=== PATIENT | female | born 1935 | race Caucasian/White ===

== ENCOUNTER 2019-05-14 14:18 | Inpatient (IN) ==
--- NOTE | 2019-05-14 14:25 | Emergency Department Note ---
Impression & Plan Aspiration into airway, Dementia, Hypoxia, Leukocytosis ED Provider Note NAME: OSWALD HUDSON AGE: 84 SEX: F ARRIVES VIA: Ambulance INFORMANT: EMS, son ED PROVIDER(S): Javy Martínez MD CHIEF COMPLAINT: Respiratory distress PLAN: Disposition: Admit MEDICAL DECISION MAKING: The patient is a pleasant 84-year-old woman with a past medical history of dementia who presents emergency department from her [facility] facility for respiratory distress in the setting of choking on a peanut butter sandwich. On arrival the patient is in mild respiratory distress with hypoxia with oxygen saturation in the lower to mid 80s on room air. Patient was placed on Ventimask with improvement in her O2 saturation to 93% gradual improvement in her work of breathing. Upon the patient's arrival I did discuss the case with the patient's son and he did confirm that the patient's wishes are to be DNR/DNI but is not sure if the form had followed her previously in [place]. He understands that if the patient's respiratory status were to decline, given the inability to intubate per the patient's wishes and goals of care that focus would then be on more comfort measures. On exam the patient has diminished breath sounds of the right lung avalos but is otherwise clear. EKG without overt acute ischemia. Chest x-ray negative for acute process. BBC 12.6, nonspecific. H/H and platelets within normal limits. Chemistry without acidosis. BUN 19 she is decreased from last month. Take 1.5. Electrolytes and LFTs unremarkable. Troponin 0.042, within normal limits. Patient's acute onset respiratory distress in the setting of report of aspiration reasonable to proceed with admission for further management. Given no chest x-ray findings at this time to suggest aspiration pneumonia will defer antibiotic treatment to admitting team. Case was discussed with Dr. Chowdhury, [facility] hospitalist, who will evaluate the patient for admission. Triage Nursing notes reviewed and agree them. Additional history obtained from son over the phone Prior medical records reviewed Vital Signs: reviewed and remarkable for hypoxia, tachypnea and tachycardia. Differential diagnosis: Reactive airway disease, pneumonia, pneumothorax, COPD, CHF, infections, cardiac ischemia, pulmonary embolism, musculoskeletal, gastrointestinal, as well as other pathologies. ER treatment provided: See below. Diagnostics interpreted by me: ECG: Sinus tachycardia, 109 bpm, normal axis, no overt ST elevations or depressions. QTC 460, QRS 76. Baseline artifact. Cardiac Monitoring: Sinus tachycardia, 109 bpm, no ectopy. Laboratory studies: See below Imaging studies: XR chest 1V portable CLINICAL HISTORY: Chest Pain dyspnea COMPARISON STUDY: No previous studies for comparison. FINDINGS: Mild atelectasis left base. Lungs otherwise appear clear. Diaphragms are smooth. IMPRESSION: Mild atelectasis left base. Otherwise negative study. Consultation(s): Dr. Chowdhury, [facility] hospitalist. HPI: The patient is a pleasant 84-year-old woman with a past medical history of dementia who presents emergency department from her [facility] facility for respiratory distress in the setting of choking on a peanut butter sandwich. On arrival the patient is in mild respiratory distress with hypoxia with oxygen saturation in the lower to mid 80s on room air. Upon the patient's arrival I did discuss the case with the patient's son and he did confirm that the patient's wishes are to be DNR/DNI but is not sure if the form had followed her previously in [place]. He understands that if the patient's respiratory status were to decline, given the inability to intubate per the patient's wishes and goals of care that focus would then be on more comfort measures. ROS: See above HPI for pertinent positives & negatives. A total of 10 systems reviewed and were otherwise negative but limited 2/2 dementia. PAST MEDICAL HISTORY:See Below PAST SURGICAL HISTORY:See Below FAMILY HISTORY:See Below SOCIAL HISTORY:See Below HOME MEDICATIONS:See Below ALLERGIES:See Below VITALS:See Below PHYSICAL EXAMINATION: GENERAL: Awake, alert, uncomfortable-appearing, moderate respiratory distress. HENT: Normocephalic, atraumatic. Oropharynx with dry mucous membranes and otherwise unremarkable. EYES: Normal conjunctiva. Sclera non-icteric. NECK: Supple. No nuchal rigidity. FROM. No JVD. RESPIRATORY: Diminished breath sounds of the right lung avalos and otherwise clear to auscultation. CARDIAC: Tachycardic rate, normal rhythm. Extremities warm and well perfused. Pulses equal. ABDOMEN: Soft, non-distended. No tenderness to palpation. No rebound or guarding. No masses. RECTAL: Deferred. MUSCULOSKELETAL: Chest examination reveals no tenderness. The back is symmetri maral on inspection without obvious abnormality. There is no CVA tenderness to palpation. No joint edema. LOWER EXTREMITIES: Calves are equal size bilaterally and non-tender. No edema. No discoloration. NEURO: Normal sensorium. No sensory or motor deficits noted. SKIN: No rash or jaundice noted. ED COURSE: Javy Martínez MD Past Med/Surg History Medical History Dementia (Acute) Family History Other Family history non-contributory Social History Preferred Language: Austrian Communication Ability: Effective Beliefs That Will Affect Care: None Current Living Situation: Personal Care Facility Current Living Situation Comment: [facility] Feels Safe at Home: Yes Smoking Status: Never smoker Hx Alcohol Use: No Hx Substance Use: No Allergies Allergies Allergy/AdvReac Type Severity Reaction Status Date / Time No Known Allergies Allergy Unverified 05/14/19 14:53 Home Meds Home Medications Medication Instructions Recorded Confirmed acetaminophen 650 mg PO Q4 PRN MDD 3gm/24hr 12/10/17 05/14/19 albuterol sulfate [Ventolin HFA] 2 puff INHALATION Q4 PRN 12/10/17 05/14/19 calcium carbonate [Calcium 600] 600 mg PO BID 12/10/17 05/14/19 chlorpheniramine maleate 4 mg PO Q4 PRN 12/10/17 05/14/19 [Aller-Chlor] cholecalciferol (vitamin D3) 2,000 unit PO DAILY@0800 12/10/17 05/14/19 [Vitamin D3] levothyroxine 25 mcg PO DAILY@0812/10/17 05/14/19 paozewlxxvvl-fbyorcro-mteseu 1 tab PO DAILY@0800 12/10/17 05/14/19 [Cerovite Senior] nystatin 1 applic TOPICAL TID PRN 12/10/17 05/14/19 oxybutynin chloride 10 mg PO DAILY@0812/10/17 05/14/19 paroxetine HCl 10 mg PO DAILY@0800 12/10/17 05/14/19 quetiapine 25 mg PO DAILY@199912/10/17 05/14/19 spironolactone 25 mg PO DAILY@0812/10/17 05/14/19 Results & Data (ED) Vital Signs Vital Signs - 24 hr 05/14/19 14:24 05/14/19 14:29 05/14/19 14:30 Temperature 36.9 C Temperature Source Oral Pulse Rate 110 H 108 H 108 H Pulse Rate from SpO2 Sensor 111 H 108 H 109 H Pulse Rhythm Regular Pulse Strength Normal Respiratory Rate 27 H 24 19 Respiratory Effort / Characteristics Spontaneous Short of Breath Respiratory Depth Normal Respiratory Pattern Regular Blood Pressure 148/74 H 148/74 H Blood Pressure Mean 112 98 Blood Pressure Position Lying Pulse Oximetry 88 L 91 92 Oxygen Delivery Method Room Air Oxymask Oxymask Oxygen Flow Rate 10 10 Sepsis Recent Fever Within 48 Hours No Sepsis New/Unexplained Change in Mental Status No Sepsis Action Taken by Nursing No Action Required 05/14/19 15:00 05/14/19 15:30 05/14/19 16:00 Temperature Temperature Source Pulse Rate 110 H 105 H 105 H Pulse Rate from SpO2 Sensor 110 H 108 H 106 H Pulse Rhythm Pulse Strength Respiratory Rate 27 H 16 20 Respiratory Effort / Characteristics Respiratory Depth Respiratory Pattern Blood Pressure Blood Pressure Mean Blood Pressure Position Pulse Oximetry 93 95 97 Oxygen Delivery Method Oxymask Oxymask Oxymask Oxygen Flow Rate 10 10 10 Sepsis Recent Fever Within 48 Hours Sepsis New/Unexplained Change in Mental Status Sepsis Action Taken by Nursing 05/14/19 16:20 Temperature Temperature Source Pulse Rate 104 H Pulse Rate from SpO2 Sensor 103 H Pulse Rhythm Pulse Strength Respiratory Rate 18 Respiratory Effort / Characteristics Respiratory Depth Respiratory Pattern Blood Pressure 135/79 Blood Pressure Mean 92 Blood Pressure Position Pulse Oximetry 98 Oxygen Delivery Method Oxymask Oxygen Flow Rate 10 Sepsis Recent Fever Within 48 Hours Sepsis New/Unexplained Change in Mental Status Sepsis Action Taken by Nursing Laboratory Data Attestation: I reviewed the patient's lab results. Result diagrams: 05/14/19 14:55 05/14/19 14:55 Lab Results 05/14/19 05/14/19 05/14/19 Range/Units 14:55 14:55 14:55 WBC 12.69 H (4.8-10.8) K/uL RBC 4.56 (4.2-5.4) M/uL Hgb 14.2 (12.0-16.0) g/dL Hct 42.5 (37-47) % MCV 93.2 (80-100) fL MCH 31.1 (25-34) pg MCHC 33.4 (32-36) g/dL RDW Std Deviation 43.2 (36.4-46.3) fL RDW Coeff of Adelaida 12.7 (11.5-14.5) % Plt Count 262 (130-400) K/uL MPV 9.8 (7.4-10.4) fL Immature Gran % (Auto) 0.2 % Neut % (Auto) 83.6 % Lymph % (Auto) 7.9 % [place] % (Auto) 7.5 % Eos % (Auto) 0.6 % Baso % (Auto) 0.2 % Immature Gran # (Auto) 0.03 H (0.00-0.02) K/uL Neut # (Auto) 10.61 H (1.4-6.5) K/uL Lymph # (Auto) 1.00 L (1.2-3.4) K/uL [place] # (Auto) 0.95 H (0.11-0.59) K/uL Eos # (Auto) 0.07 (0-0.5) K/uL Baso # (Auto) 0.03 (0-0.2) K/uL Absolute Nucleated RBC 0.06 H (0-0) K/uL Nucleated RBC % (auto) 0.4 % PT 11.4 (9.0-12.0) Seconds INR 1.1 (0.9-1.1) APTT 21.1 (21.0-31.0) Seconds PTT Ratio 0.8 Sodium 138 (136-145) mmol/L Potassium 4.4 (3.5-5.1) mmol/L Chloride 104 (98-107) mmol/L Carbon Dioxide 31 (21-32) mmol/L Anion Gap 3.0 (3-11) BUN 19 H (7-18) mg/dl Creatinine 0.92 (0.6-1.2) mg/dl Est Cr Clr Drug Dosing Not Reportable Est GFR ( Amer) 65.3 Est GFR (Non-Af Amer) 56.4 BUN/Creatinine Ratio 20.2 H (10-20) Glucose 137 H (70-99) mg/dl Lactate (0.4-2.0) mmol/L Calcium 9.9 (8.5-10.1) mg/dl Total Bilirubin 0.4 (0.2-1) mg/dl AST 22 (15-37) U/L ALT 22 (12-78) U/L Alkaline Phosphatase 114 (45-117) U/L Troponin I 0.042 (0-0.045) ng/ml Total Protein 7.5 (6.4-8.2) gm/dl Albumin 3.3 L (3.4-5.0) gm/dl Globulin 4.2 H (2.5-4.0) gm/dl Albumin/Globulin Ratio 0.8 L (0.9-2) Specimen Hemolysis 05/14/19 Range/Units 14:55 WBC (4.8-10.8) K/uL RBC (4.2-5.4) M/uL Hgb (12.0-16.0) g/dL Hct (37-47) % MCV (80-100) fL MCH (25-34) pg MCHC (32-36) g/dL RDW Std Deviation (36.4-46.3) fL RDW Coeff of Adelaida (11.5-14.5) % Plt Count (130-400) K/uL MPV (7.4-10.4) fL Immature Gran % (Auto) % Neut % (Auto) % Lymph % (Auto) % [place] % (Auto) % Eos % (Auto) % Baso % (Auto) % Immature Gran # (Auto) (0.00-0.02) K/uL Neut # (Auto) (1.4-6.5) K/uL Lymph # (Auto) (1.2-3.4) K/uL [place] # (Auto) (0.11-0.59) K/uL Eos # (Auto) (0-0.5) K/uL Baso # (Auto) (0-0.2) K/uL Absolute Nucleated RBC (0-0) K/uL Nucleated RBC % (auto) % PT (9.0-12.0) Seconds INR (0.9-1.1) APTT (21.0-31.0) Seconds PTT Ratio Sodium (136-145) mmol/L Potassium (3.5-5.1) mmol/L Chloride (98-107) mmol/L Carbon Dioxide (21-32) mmol/L Anion Gap (3-11) BUN (7-18) mg/dl Creatinine (0.6-1.2) mg/dl Est Cr Clr Drug Dosing Est GFR ( Amer) Est GFR (Non-Af Amer) BUN/Creatinine Ratio (10-20) Glucose (70-99) mg/dl Lactate 1.5 (0.4-2.0) mmol/L Calcium (8.5-10.1) mg/dl Total Bilirubin (0.2-1) mg/dl AST (15-37) U/L ALT (12-78) U/L Alkaline Phosphatase (45-117) U/L Troponin I (0-0.045) ng/ml Total Protein (6.4-8.2) gm/dl Albumin (3.4-5.0) gm/dl Globulin (2.5-4.0) gm/dl Albumin/Globulin Ratio (0.9-2) Specimen Hemolysis Administered Medications Heparin Sodium (Porcine) (Heparin Sodium (Porcine)) 5,000 units SQ Q8 MAY Stop: 06/13/19 21:59 Last Admin: 05/14/19 21:47 Dose: 5,000 units Documented by: [id number] Cosigned by: [id number] Sodium Chloride (Nss) 500 mls @ 125 mls/hr IV .Q4H MAY Stop: 06/13/19 14:44 Last Admin: 05/14/19 19:11 Dose: 125 mls/hr Documented by: [id number] Infusion: 05/14/19 18:49 Dose: 0 mls/hr Documented by: [id number] Admin: 05/14/19 15:06 Dose: 125 mls/hr Documented by: [id number] Discontinued Medications Piperacillin Sod/Tazobactam (Sod 3.375 gm/ Dextrose) 115 mls @ 230 mls/hr IV ONE ONE Stop: 05/14/19 19:29 Last Infusion: 05/14/19 19:53 Dose: 0 mls/hr Documented by: [id number] Admin: 05/14/19 19:23 Dose: 230 mls/hr Documented by: [id number] Lorazepam (Ativan) 1 mg in 2 mls @ 2 mls/min IV NOW STA Stop: 05/14/19 19:53 Last Admin: 05/14/19 20:01 Dose: 2 mls/min Documented by: [id number] Blood Pressure Blood Pressure Findings: Elevated blood pressure Blood Pressure Disposition: further management by hospitalist Discharge Plan Visit Data *Final* Discharge Date/Time: 05/14/19 17:25 Chief Complaint: Respiratory Problems ED Provider: Javy Martínez Discharge Problem: Aspiration into airway, Dementia, Hypoxia, Leukocytosis Patient Disposition: Admitted As Inpatient Discharge Instructions Interventions: ED Discharge Assessment Last Done: 05/14/19 17:25 Discharge Problem: Aspiration into airway Qualifiers: Encounter type: initial encounter Qualified Code(s): T17.908A - Unspecified foreign body in respiratory tract, part unspecified causing other injury, i nitial encounter Dementia Qualifiers: Dementia type: unspecified type Dementia behavioral disturbance: without behavioral disturbance Qualified Code(s): F03.90 - Unspecified dementia without behavioral disturbance Leukocytosis Qualifiers: Leukocytosis type: unspecified Qualified Code(s): D72.829 - Elevated white blood cell count, unspecified
[2019-05-14 15:03] LABS: Basophils # (auto) 0.03 K/uL (0-0.2); Basophils % (auto) 0.2 %; Eosinophils # (auto) 0.07 K/uL (0-0.5); Eosinophils % (auto) 0.6 %; Hematocrit (blood only) 42.5 % (37-47); Hemoglobin 14.2 g/dL (12.0-16.0); Immature Granulocytes # (auto) 0.03 K/uL (0.00-0.02); Immature Granulocytes % (auto) 0.2 %; Lymphocytes % (auto) 7.9 %; Mean Corpuscular Hemoglobin 31.1 pg (25-34); Mean Corpuscular Hgb Conc 33.4 g/dL (32-36); Mean Corpuscular Volume 93.2 fL (80-100); Mean Platelet Volume 9.8 fL (7.4-10.4); Monocytes # (auto) 0.95 K/uL (0.11-0.59); Monocytes % (auto) 7.5 %; Neutrophils # (auto) 10.61 K/uL (1.4-6.5); Neutrophils % (auto) 83.6 %; Nucleated RBC # (auto) 0.06 K/uL (0-0); Nucleated RBC % (auto) 0.4 %; Platelet Count 262 K/uL (130-400); RDW Coefficient of Variation 12.7 % (11.5-14.5); RDW Standard Deviation 43.2 fL (36.4-46.3); Red Blood Count 4.56 M/uL (4.2-5.4); White Blood Count 12.69 K/uL (4.8-10.8)
[2019-05-14] MEDS: SODIUM CHLORIDE 0.9% 500 ML IV SCH ×3 (15:06→23:10)
[2019-05-14 15:14] LABS: INR 1.1 (0.9-1.1); Partial Thromboplastin Ratio 0.8; Partial Thromboplastin Time 21.1 Seconds (21.0-31.0); Prothrombin Time 11.4 Seconds (9.0-12.0)
--- NOTE | 2019-05-14 15:17 | XRay Report ---
XR chest 1V portable CLINICAL HISTORY: Chest Pain dyspnea COMPARISON STUDY: No previous studies for comparison. FINDINGS: Mild atelectasis left base. Lungs otherwise appear clear. Diaphragms are smooth. IMPRESSION: Mild atelectasis left base. Otherwise negative study. ACT 112: Negative or not required by law. The above report was generated using voice recognition software. It may contain grammatical, syntax or spelling errors. Electronically signed by: Norris Chao M.D. 05/14/2019 3:16 PM
[2019-05-14 15:38] LABS: Alanine Aminotransferase 22 U/L (12-78); Albumin Globulin Ratio 0.8 (0.9-2); Albumin Level 3.3 gm/dl (3.4-5.0); Alkaline Phosphatase 114 U/L (45-117); Aspartate Aminotransferase 22 U/L (15-37); BUN Creatinine Ratio 20.2 (10-20); Bilirubin,Total 0.4 mg/dl (0.2-1); Blood Urea Nitrogen 19 mg/dl (7-18); Calcium 9.9 mg/dl (8.5-10.1); Carbon Dioxide 31 mmol/L (21-32); Chloride 104 mmol/L (98-107); Est GFR (African American) 65.3; Est GFR (Non-African American) 56.4; Globulin 4.2 gm/dl (2.5-4.0); Glucose 137 mg/dl (70-99); Potassium 4.4 mmol/L (3.5-5.1); Sodium 138 mmol/L (136-145); Total Protein 7.5 gm/dl (6.4-8.2); Troponin I 0.042 ng/ml (0-0.045)
--- NOTE | 2019-05-14 15:39 | Electrocardiogram Report ---
Test Reason : Blood Pressure : / mmHG Vent. Rate : 109 BPM Atrial Rate : 109 BPM P-R Int : 150 ms QRS Dur : 076 ms QT Int : 342 ms P-R-T Axes : 096 -01 027 degrees QTc Int : 460 ms Sinus tachycardia Otherwise normal ECG No previous ECGs available Confirmed by Jez Vela ([id number]) on 05/14/2019 3:38:59 PM Referred By: REFERRED SELF Confirmed By:Jez Vela
--- NOTE | 2019-05-14 16:55 | History & Physical Report ---
Date of Service May 14, 2019 Assessment & Plan (1) Aspiration into airway: choked on sandwich earlier today no distress at this time lungs clear, some diminished sounds in the bases CXR clear, no infiltrate initially on 10L via mask, down to 3L via mask while I was in the room will cover with Zosyn for now make her strict NPO, she does not need to take any of her typical home medications at this time will evaluate her swallowing tomorrow with speech therapy advance diet per their recommendations make her observation as I anticipate she will be here less than two midnights (2) Hypoxia: (3) Dementia: History of Present Illness Chief Complaint: choked on sandwich Primary Care Provider: [facility] 84 yo female with advanced dementia from personal senior living, she was sent to the ED after a severe choking spell on a sandwich earlier today. There were concerns that she aspirated and she was having some dyspnea. She cannot recall any recent history, all the history is from the ED provider who got it from the EMS who brought her in. In the ED she was 85% on room air initially, placed on oxymask and saturations joseph to the mid 90's. CXR without any signs of aspiration on the right. No distress on exam. Labs showed a mild leukocytosis but were otherwise stable. Since she was requiring oxygen, request was made to observe the patient overnight. Allergies Allergy/AdvReac Type Severity Reaction Status Date / Time No Known Allergies Allergy Unverified 05/14/19 14:53 Home Medications Home Medications Medication Instructions Recorded Confirmed Type acetaminophen 650 mg PO Q4 PRN MDD 3gm/24hr 12/10/17 05/14/19 History albuterol sulfate [Ventolin HFA] 2 puff INHALATION Q4 PRN 12/10/17 05/14/19 History calcium carbonate [Calcium 600] 600 mg PO BID 12/10/17 05/14/19 History chlorpheniramine maleate 4 mg PO Q4 PRN 12/10/17 05/14/19 History [Aller-Chlor] cholecalciferol (vitamin D3) 2,000 unit PO DAILY@0800 12/10/17 05/14/19 History [Vitamin D3] levothyroxine 25 mcg PO DAILY@0800 12/10/17 05/14/19 History vsduzaoregos-dakradgb-spylyt 1 tab PO DAILY@0800 12/10/17 05/14/19 History [Cerovite Senior] nystatin 1 applic TOPICAL TID PRN 12/10/17 05/14/19 History oxybutynin chloride 10 mg PO DAILY@0812/10/17 05/14/19 History paroxetine HCl 10 mg PO DAILY@0800 12/10/17 05/14/19 History quetiapine 25 mg PO DAILY@199912/10/17 05/14/19 History spironolactone 25 mg PO DAILY@0812/10/17 05/14/19 History Past Med/Surg History Medical History Dementia Family History (Updated 05/14/19 @ 20:23 by Aaron Chowdhury DO) Other Family history non-contributory Social History Preferred Language: Japanese Communication Ability: Effective Beliefs That Will Affect Care: None Current Living Situation: Personal Care Facility Current Living Situation Comment: [facility] Feels Safe at Home: Yes Smoking Status: Never smoker Hx Alcohol Use: No Hx Substance Use: No Review of Systems Review of Systems: All systems reviewed & are unremarkable except as noted in HPI & below Constitutional: no fever, no chills, no sweats, no fatigue and no weakness Respiratory: + cough (mild); no dyspnea and no sputum production Cardiovascular: no chest pain and no edema Gastrointestinal: no abdominal pain, no nausea, no vomiting, no constipation and no diarrhea/loose stools Physical Exam Constitutional: WD/WN, vitals as above Eyes: PERRL, conjunctivae normal, anicteric sclerae ENMT: external ear and nose normal, oropharynx normal Neck: trachea midline, no thyromegaly Respiratory: normal respiratory effort, lungs clear to auscultation Auscultation: + diminished lung sounds (bases) Cardiovascular: Rate/Rhythm: regular rhythm and + tachycardic Heart Sounds: normal S1 and normal S2; no murmur Extremities: normal capillary refill; no edema Gastrointestinal (Abdomen): normal bowel sounds, soft, nontender, no hepatosplenomegaly Musculoskeletal: no cyanosis or clubbing, extremities motor strength 5/5 Skin: no rashes, warm and dry Neurologic: patellar DTR's 2+ bilat, sensation intact and PERRL, EOMI, accommodation nl, no face palsy, no dysarthria Psychiatric: Orientation: alert, oriented to person and cooperative; + not oriented to place and + not oriented to time Lymphatic: no cervical or axillary lymphadenopathy Results & Data Results & Data ([facility]) Vital Signs (Past 12 Hours) Vital Signs Temp Pulse Resp BP Pulse Ox 05/14/19 16:41 98 05/14/19 16:20 104 H 18 135/79 98 05/14/19 16:00 105 H 20 97 05/14/19 15:30 105 H 16 95 05/14/19 15:00 110 H 27 H 93 05/14/19 14:30 36.9 C 108 H 19 148/74 H 92 05/14/19 14:29 108 H 24 91 05/14/19 14:24 110 H 27 H 148/74 H 88 L Laboratory Results Laboratory Results - last 24 hr 05/14/19 05/14/19 05/14/19 14:55 14:55 14:55 WBC 12.69 H RBC 4.56 Hgb 14.2 Hct 42.5 MCV 93.2 MCH 31.1 MCHC 33.4 RDW Std Deviation 43.2 RDW Coeff of Adelaida 12.7 Plt Count 262 MPV 9.8 Immature Gran % (Auto) 0.2 Neut % (Auto) 83.6 Lymph % (Auto) 7.9 [place] % (Auto) 7.5 Eos % (Auto) 0.6 Baso % (Auto) 0.2 Immature Gran # (Auto) 0.03 H Neut # (Auto) 10.61 H Lymph # (Auto) 1.00 L [place] # (Auto) 0.95 H Eos # (Auto) 0.07 Baso # (Auto) 0.03 Absolute Nucleated RBC 0.06 H Nucleated RBC % (auto) 0.4 PT 11.4 INR 1.1 APTT 21.1 PTT Ratio 0.8 Sodium 138 Potassium 4.4 Chloride 104 Carbon Dioxide 31 Anion Gap 3.0 BUN 19 H Creatinine 0.92 Est Cr Clr Drug Dosing Not Reportable Est GFR ( Amer) 65.3 Est GFR (Non-Af Amer) 56.4 BUN/Creatinine Ratio 20.2 H Glucose 137 H Lactate Calcium 9.9 Total Bilirubin 0.4 AST 22 ALT 22 Alkaline Phosphatase 114 Troponin I 0.042 Total Protein 7.5 Albumin 3.3 L Globulin 4.2 H Albumin/Globulin Ratio 0.8 L Specimen Hemolysis 05/14/19 14:55 WBC RBC Hgb Hct MCV MCH MCHC RDW Std Deviation RDW Coeff of Adelaida Plt Count MPV Immature Gran % (Auto) Neut % (Auto) Lymph % (Auto) [place] % (Auto) Eos % (Auto) Baso % (Auto) Immature Gran # (Auto) Neut # (Auto) Lymph # (Auto) [place] # (Auto) Eos # (Auto) Baso # (Auto) Absolute Nucleated RBC Nucleated RBC % (auto) PT INR APTT PTT Ratio Sodium Potassium Chloride Carbon Dioxide Anion Gap BUN Creatinine Est Cr Clr Drug Dosing Est GFR ( Amer) Est GFR (Non-Af Amer) BUN/Creatinine Ratio Glucose Lactate 1.5 Calcium Total Bilirubin AST ALT Alkaline Phosphatase Troponin I Total Protein Albumin Globulin Albumin/Globulin Ratio Specimen Hemolysis Diagnostic Findings XR chest 1V portable CLINICAL HISTORY: Chest Pain dyspnea COMPARISON STUDY: No previous studies for comparison. FINDINGS: Mild atelectasis left base. Lungs otherwise appear clear. Diaphragms are smooth. IMPRESSION: Mild atelectasis left base. Otherwise negative study. Code Status & VTE Plan VTE Prophylaxis Plan VTE Prophylaxis will be ordered: Yes PG Care Time/CCT Total # of Minutes Spent Total Time Spent with Patient: Total time spent is greater than 50% in coordination of care (as documented) at patient's floor/unit and/or counseling patient: Coding Level of Care Code 99254 OBS Care - Level 2 Diagnoses Aspiration into airway T17.908A Hypoxia R09.02 Dementia F03.90
[2019-05-14] MEDS ORDERED: PIPERACILL/TAZOBAC CONSULT ACTIVE PRN (18:48)
[2019-05-14] MEDS ORDERED: ONDANSETRON INJ 2 MG/ML 2 ML VIAL IV PRN (18:48)
[2019-05-14] MEDS ORDERED: PIPERACILLIN/TAZOBACTAM 3.375 GM in DEXTROSE 5% 100 ML IV ONE (19:00)
[2019-05-14] MEDS ORDERED: LORazepam 1 MG/2 ML VIAL IV STA (19:52)
[2019-05-14] MEDS: HEPARIN SOD 5,000 UNIT/0.5 ML VIAL SQ SCH (21:47)
[2019-05-14] MEDS ORDERED: ACETAMINOPHEN 1,000 MG/100 ML VIAL IV STA (23:39)
[2019-05-15] MEDS: PIPERACILLIN/TAZOBACTAM 3.375 GM in DEXTROSE 5% 100 ML IV SCH ×2 (00:05→07:43)
[2019-05-15] MEDS ORDERED: BUDESONIDE 0.5 MG/2 ML VIAL (PULMICORT) NEB PRN (05:37)
[2019-05-15] MEDS ORDERED: VANCOMYCIN CONSULT ACTIVE PRN (05:37)
[2019-05-15 05:49] LABS: iSTAT Allen Test Pass; iSTAT Art Bld Gas pCO2 Correct 68 mmHg (35-46); iSTAT Arterial Blood Gas HCO3 32 meg/L (19-24); iSTAT Arterial Blood Gas pCO2 67 mmHg (35-46); iSTAT Arterial Blood Gas pH 7.28 (7.35-7.45); iSTAT Arterial Blood Gas pO2 72 mmHg (80-95); iSTAT Arterial Blood Gas pO2 C 73; iSTAT Carbon Dioxide 34 mmol/L (24-31); iSTAT Hematocrit 39 % (37-47); iSTAT Hemoglobin 13.3 g/dl (12.0-16.0); iSTAT Potassium 4.4 mmol/L (3.3-5.0); iSTAT Site L Radial; iSTAT Sodium 139 mmol/L (135-144)
[2019-05-15] MEDS ORDERED: VANCOMYCIN HCL 1,250 MG in SODIUM CHLORIDE 0.9% 250 ML IV ONE (06:00)
[2019-05-15] MEDS ORDERED: ALBUT/IPRATROP 3MG/0.5MG NEB 3 ML VIAL NEB PRN (06:01)
[2019-05-15 06:07] LABS: Basophils # (auto) 0.04 K/uL (0-0.2); Basophils % (auto) 0.2 %; Hematocrit (blood only) 40.2 % (37-47); Immature Granulocytes # (auto) 0.07 K/uL (0.00-0.02); Immature Granulocytes % (auto) 0.3 %; Lymphocytes # (auto) 1.44 K/uL (1.2-3.4); Lymphocytes % (auto) 6.6 %; Mean Corpuscular Hemoglobin 30.4 pg (25-34); Mean Corpuscular Hgb Conc 32.3 g/dL (32-36); Mean Corpuscular Volume 94.1 fL (80-100); Mean Platelet Volume 9.7 fL (7.4-10.4); Monocytes # (auto) 2.24 K/uL (0.11-0.59); Monocytes % (auto) 10.3 %; Neutrophils # (auto) 17.89 K/uL (1.4-6.5); Neutrophils % (auto) 82.6 %; Platelet Count 232 K/uL (130-400); RDW Coefficient of Variation 12.8 % (11.5-14.5); RDW Standard Deviation 43.8 fL (36.4-46.3); Red Blood Count 4.27 M/uL (4.2-5.4); White Blood Count 21.68 K/uL (4.8-10.8)
--- NOTE | 2019-05-15 06:15 | XRay Report ---
XR chest 1V portable CLINICAL HISTORY: repeat, worsening o2 COMPARISON STUDY: Chest radiograph May 14, 2019. FINDINGS: There is no pneumothorax. There may be small bilateral pleural effusions. Bibasilar opaciti es have increased. There is no evidence for pulmonary edema. Cardiomediastinal silhouette is stable. IMPRESSION: 1. Increase in bibasilar opacities which may reflect pneumonia or atelectasis. 2. Suspected small bilateral pleural effusions. 3. No evidence for pulmonary edema. ACT 112: Negative or not required by law. Electronically signed by: Ramses Kenyon M.D. 05/15/2019 6:14 AM
[2019-05-15 06:27] LABS: BUN Creatinine Ratio 19.4 (10-20); Calcium 9.3 mg/dl (8.5-10.1); Creatinine Clr Calc Pharmacy 33.5 ml/min; Potassium 4.3 mmol/L (3.5-5.1)
[2019-05-15] MEDS: HEPARIN SOD 5,000 UNIT/0.5 ML VIAL SQ SCH ×2 (06:40→13:56)
[2019-05-15] MEDS: SODIUM CHLORIDE 0.9% 500 ML IV SCH ×2 (06:55→07:28)
--- NOTE | 2019-05-15 06:56 | CT Scan Report ---
CT chest wo con CLINICAL HISTORY: aspiration, worsening o2 COMPARISON STUDY: Chest x-ray dated 05/15/2019 CT DOSE: 265.43 mGy.cm TECHNIQUE: CT of the thorax was performed from the thoracic inlet to the lung bases. Images are revi ewed in the axial, sagittal, and coronal planes. IV contrast was not administered for this examinatio n. A dose lowering technique was utilized adhering to the principles of ALARA. FINDINGS: Thyroid: There is a lobulated thyroid. Thoracic aorta: The thoracic aorta is normal in course and caliber, noting standard 3 vessel arch inez shadia. Heart: There are coronary artery calcifications. There is no significant pericardial effusion. Lungs and pleural spaces: There are bilateral dependent pulmonary airspace opacities. Given the clini maral history, this could be secondary to aspiration. There are no significant pleural effusions. There is a solid 2.5 mm right upper lobe pulmonary nodule. In a low-risk patient, no further follow-up is indicated. The right upper lobe bronchus originates from the distal trachea. Mediastinum: There is no evidence of pathologic mediastinal lymphadenopathy. There is a distended flu id and debris-filled esophagus. Junie: There is no evidence of pathologic hilar adenopathy given the limitations of a noncontrast stud y Axilla: There is no evidence of pathologic axillary lymphadenopathy Upper abdomen: There is a lobular appearance of the upper pole of the left kidney. A mass cannot be excluded. Skeletal structures: There are no lytic or blastic osseous lesions. IMPRESSION: 1. Bilateral dependent pulmonary airspace opacities. Given the clinical history, this could be second kailyn to aspiration. 2. Anatomic variant origin of the right upper lobe bronchus from the distal trachea 3. No evidence of pathologic adenopathy 4. Mildly distended fluid and debris filled esophagus 5. Lobulated contour of the upper pole of the left kidney. This cannot be further characterized witho ut intravenous contrast. ACT 112: Negative or not required by law. Electronically signed by: Vance Godoy M.D. 05/15/2019 6:55 AM
[2019-05-15] MEDS ORDERED: ALBUT/IPRATROP 3MG/0.5MG NEB 3 ML VIAL NEB SCH (07:00)
[2019-05-15] MEDS: SODIUM CHLORIDE 0.9% 1000ML 1,000 ML IV SCH ×2 (07:35→18:46)
--- NOTE | 2019-05-15 11:57 | Pharmacy Report ---
Pharmacy Abx Initial Consult - Date of Service May 15, 2019 - Pharmacy Dosing Scope Date of Consult: 05/15/19 Consultation requested by: Riya Cash Pharmacy is consulted to initiate IV Vancomycin dosing therapy, order appropriate labs and adjust drug dose/frequency. - Subjective The patient is a 84 year old F admitted on 05/15/19 10:57. - Objective Height: 5 ft 6 in Weight: 61 kg Vital Signs (Past 12hrs): Vital Signs Temp Pulse Pulse Resp BP Pulse Ox Pulse Ox 05/15/19 09:00 102 H 05/15/19 07:00 36.9 C 104 H 109 H 20 150/71 H 94 05/15/19 06:17 102 H 19 94 05/15/19 05:21 88 L 05/15/19 05:04 85 L 05/15/19 05:00 88 L 05/15/19 04:59 85 L 05/15/19 04:28 37.2 C 87 20 127/66 93 05/15/19 00:45 112 H 05/15/19 00:00 92 Lab Results (24hrs): Laboratory Tests (24 Hours) 05/15/19 05/15/19 05/15/19 05:45 05:45 05:45 WBC 21.68 H Neut # (Auto) 17.89 H Creatinine 1.13 Est Cr Clr Drug Dosing 33.5 Procalcitonin 0.44 05/14/19 05/14/19 14:55 14:55 WBC 12.69 H Neut # (Auto) 10.61 H Creatinine 0.92 Est Cr Clr Drug Dosing Not Reportable Procalcitonin Micro Results: 05/14/19 15:05 Aerobic Blood Culture - Pending Blood Anaerobic Blood Culture - Pending 05/14/19 14:55 Aerobic Blood Culture - Pending Blood Anaerobic Blood Culture - Pending - Risk Factors for Resistance * Resident in a senior living or extended-care facility - Assessment & Plan Assessment 84 year old F from personal residential admitted for possible aspiration, suspected pneumonia. Blood cultures pending. Vancomycin and Zosyn ordered for possible Pneumonia. MRSA nasal swab ordered. If this is negative, Vancomycin may be discontinued. Plan Vancomycin IV * Loading dose: 1250 mg IV (20 mg/kg) given this AM. * Maintenance dose: 1000 mg IV (16 mg/kg) every 24 hours ordered to start tomorrow. Patient meets criteria for vancomycin AUC dosing nomogram AUC/ROSSANA is the preferred PK/PD target for vancomycin Target AUC/ROSSANA = 400-600 AUC guided dosing is effective and associated with decreased risk of nephrotoxicity * Trough level ordered for 05/18/19 before dose at 0400, after 2 maintenance doses. Pharmacy will continue to follow and will adjust dose/frequency as necessary. Thank you.
[2019-05-15] MEDS ORDERED: MoRPHine SULFATE 4 MG/ML 1 ML CARP\\VIAL IV STA (15:00)
[2019-05-15] MEDS ORDERED: MoRPHine SULF/NSS 250 MG/250 ML BTL IV SCH (15:00)
[2019-05-15] MEDS ORDERED: STAT IV Infusion **Titration per Protocol STA (15:00)
[2019-05-15] MEDS ORDERED: LORazepam 0.5 MG/1 ML VIAL IV PRN (15:01)
--- NOTE | 2019-05-15 15:28 | Hospitalist Progress Note ---
Date of Service May 15, 2019 Assessment & Plan (1) Aspiration into airway: initially admitted after a single choking incident, resolved quickly and she was down to room air last night early this morning had large volume emesis and immediately choked/aspirated became hypoxic, in distress, placed on BIPAP, did not tolerate well after discussions with family we changed to a palliative approach stop antibiotics place on Morphine drip and Ativan IV PRN family will come into hospital to see her discussed that she likely does not have long (2) Hypoxia: acute hypoxic respiratory failure due to aspiration into airway comfort care (3) Dementia: ativan IV for anxiety Admission and Anticipated Discharge Date Admission Date: May 15, 2019 Subjective patient was doing well last night per the RN who had her, she was talking and breathing on room air in the manager [employer] she coughed or vomited and had a large aspiration event she had a CT that showed bibasilar infiltrates consistent with aspiration event and fluid filled esophagus she was placed on BIPAP this morning she appeared uncomfortable on the BIPAP, gurgling in back of her throat I talked with her son over the phone, explained that she was not doing well he stressed that what he and the family cared about was her comfort, did not want her in distress or anxious we tried taking her off the BIPAP she lasted a few hours but saturations dropped to mid 80's, respiratory placed her on BIPAP, only increased her distress, HR in the 130's, gurgling called son a second time, he requested that we make her comfort spoke with RN, will stop all medications will start on morphine drip, Ativan IV PRN Review of Systems Review of Systems: Unobtainable due to cognitive status Physical Exam Constitutional: + acute distress, + ill appearing and + altered mental status Eyes: PERRL, conjunctivae normal, anicteric sclerae ENMT: external ear and nose normal, oropharynx normal Neck: trachea midline, no thyromegaly Respiratory: + respiratory distress and + labored breathing Auscultation: + rhonchi Cardiovascular: Rate/Rhythm: regular rhythm and + tachycardic Heart Sounds: normal S1 and normal S2; no murmur Extremities: normal capillary refill; no edema Gastrointestinal (Abdomen): normal bowel sounds, soft, nontender, no hepatosplenomegaly Musculoskeletal: no cyanosis or clubbing, extremities motor strength 5/5 Skin: no rashes, warm and dry Neurologic: patellar DTR's 2+ bilat, sensation intact and PERRL, EOMI, accommodation nl, no face palsy, no dysarthria Psychiatric: Orientation: alert, oriented to person and cooperative; + not oriented to place and + not oriented to time Lymphatic: no cervical or axillary lymphadenopathy Results & Data Results & Data ([facility]) Vital Signs (Past 12 Hours) Vital Signs Temp Pulse Pulse Resp BP Pulse Ox Pulse Ox 05/15/19 14:01 111 H 18 89 L 05/15/19 13:00 105 H 18 90 05/15/19 11:20 37.3 C 98 H 18 133/72 92 05/15/19 09:00 102 H 05/15/19 07:00 36.9 C 104 H 109 H 20 150/71 H 94 05/15/19 06:17 102 H 19 94 05/15/19 05:21 88 L 05/15/19 05:04 85 L 05/15/19 05:00 88 L 05/15/19 04:59 85 L 05/15/19 04:28 37.2 C 87 20 127/66 93 Laboratory Results Laboratory Results - last 24 hr 05/14/19 05/14/19 05/15/19 14:55 14:55 05:33 WBC RBC Hgb POC Hgb 13.3 Hct POC Hct 39 MCV MCH MCHC RDW Std Deviation RDW Coeff of Adelaida Plt Count MPV Immature Gran % (Auto) Neut % (Auto) Lymph % (Auto) [place] % (Auto) Eos % (Auto) Baso % (Auto) Immature Gran # (Auto) Neut # (Auto) Lymph # (Auto) [place] # (Auto) Eos # (Auto) Baso # (Auto) Sample Site L Radial POC pH 7.28 L POC pCO2 67 H POC pO2 72 L POC HCO3 32 H POC Total CO2 34 H POC Base Excess 5.0 H ABG pH (Temp Correct) 7.280 L ABG pCO2 (Temp Corrct 68 H POC ABG pO2 at Pt Temp 73 Rodolfo Test Pass O2 Delivery Device Other POC Sodium 139 Sodium 138 POC Potassium 4.4 Potassium 4.4 Chloride 104 Carbon Dioxide 31 Anion Gap 3.0 BUN 19 H Creatinine 0.92 Est Cr Clr Drug Dosing Not Reportable Est GFR ( Amer) 65.3 Est GFR (Non-Af Amer) 56.4 BUN/Creatinine Ratio 20.2 H Glucose 137 H Lactate 1.5 Calcium 9.9 Total Bilirubin 0.4 AST 22 ALT 22 Alkaline Phosphatase 114 Troponin I 0.042 Total Protein 7.5 Albumin 3.3 L Globulin 4.2 H Albumin/Globulin Ratio 0.8 L Procalcitonin Specimen Hemolysis Nasal Screen MRSA (PCR) 05/15/19 05/15/19 05/15/19 05:45 05:45 05:45 WBC 21.68 H RBC 4.27 Hgb 13.0 POC Hgb Hct 40.2 POC Hct MCV 94.1 MCH 30.4 MCHC 32.3 RDW Std Deviation 43.8 RDW Coeff of Adelaida 12.8 Plt Count 232 MPV 9.7 Immature Gran % (Auto) 0.3 Neut % (Auto) 82.6 Lymph % (Auto) 6.6 [place] % (Auto) 10.3 Eos % (Auto) 0.0 Baso % (Auto) 0.2 Immature Gran # (Auto) 0.07 H Neut # (Auto) 17.89 H Lymph # (Auto) 1.44 Sol[place] # (Auto) 2.24 H Eos # (Auto) 0.00 Baso # (Auto) 0.04 Sample Site POC pH POC pCO2 POC pO2 POC HCO3 POC Total CO2 POC Base Excess ABG pH (Temp Correct) ABG pCO2 (Temp Corrct POC ABG pO2 at Pt Temp Rodolfo Test O2 Delivery Device POC Sodium Sodium 140 POC Potassium Potassium 4.3 Chloride 106 Carbon Dioxide 32 Anion Gap 2.0 L BUN 22 H Creatinine 1.13 Est Cr Clr Drug Dosing 33.5 Est GFR ( Amer) 51.0 Est GFR (Non-Af Amer) 44.0 BUN/Creatinine Ratio 19.4 Glucose 113 H Lactate Calcium 9.3 Total Bilirubin AST ALT Alkaline Phosphatase Troponin I Total Protein Albumin Globulin Albumin/Globulin Ratio Procalcitonin 0.44 Specimen Hemolysis Nasal Screen MRSA (PCR) 05/15/19 12:45 WBC RBC Hgb POC Hgb Hct POC Hct MCV MCH MCHC RDW Std Deviation RDW Coeff of Adelaida Plt Count MPV Immature Gran % (Auto) Neut % (Auto) Lymph % (Auto) [place] % (Auto) Eos % (Auto) Baso % (Auto) Immature Gran # (Auto) Neut # (Auto) Lymph # (Auto) [place] # (Auto) Eos # (Auto) Baso # (Auto) Sample Site POC pH POC pCO2 POC pO2 POC HCO3 POC Total CO2 POC Base Excess ABG pH (Temp Correct) ABG pCO2 (Temp Corrct POC ABG pO2 at Pt Temp Rodolfo Test O2 Delivery Device POC Sodium Sodium POC Potassium Potassium Chloride Carbon Dioxide Anion Gap BUN Creatinine Est Cr Clr Drug Dosing Est GFR ( Amer) Est GFR (Non-Af Amer) BUN/Creatinine Ratio Glucose Lactate Calcium Total Bilirubin AST ALT Alkaline Phosphatase Troponin I Total Protein Albumin Globulin Albumin/Globulin Ratio Procalcitonin Specimen Hemolysis Nasal Screen MRSA (PCR) Negative Medications Administered Current Inpatient Medications Sodium Chloride (Nss 1000ml) 1,000 mls @ 125 mls/hr IV .Q8H MAY Stop: 06/14/19 07:29 Last Infusion: 05/15/19 09:47 Dose: 125 mls/hr Documented by: Morphine Sulfate (Morphine Sulf/Nss) 250 mg in 250 mls @ 2 mls/hr IV .Q24H MAY; Protocol Stop: 05/29/19 14:59 Lorazepam (Ativan) 0.5 mg in 1 mls @ 1 mls/min IV Q4H PRN PRN Reason: Anxiety/Agitation Stop: 06/14/19 15:00 Ondansetron HCl (Zofran) 4 mg IV Q6H PRN PRN Reason: Nausea Stop: 06/13/19 18:47 Last Admin: 05/15/19 04:58 Dose: 4 mg Documented by: PG Care Time/CCT Total # of Minutes Spent Total Time Spent: 40 Total Time Spent with Patient: Total time spent is greater than 50% in coordination of care (as documented) at patient's floor/unit and/or counseling patient: three visits at the bedside with patient, two separate calls to her son to discuss clinical status Coding Level of Care Code 89736 Subseq Hosp Care Lvl 3 Diagnoses Aspiration into airway T17.90 Encounter type: initial encounter Hypoxia R09.02 Dementia F03.90 Dementia behavioral disturbance: without behavioral disturbance Dementia type: unspecified type (1) Aspiration into airway Encounter type: initial encounter Qualified Code(s): T17.908A - Unspecified foreign body in respiratory tract, part unspecified causing other injury, initial encounter (2) Dementia Dementia behavioral disturbance: without behavioral disturbance Dementia type: unspecified type Qualified Code(s): F03.90 - Unspecified dementia without behavioral disturbance
[2019-05-15] MEDS ORDERED: ATROPINE SULFATE 1% OP SOLN 2 ML BTL SL PRN ×2 (18:45→19:32)
--- NOTE | 2019-05-15 23:16 | Communication Note ---
Date of Service: May 15, 2019 Paged by RN [id number] to pronounce . Noted no spontaneous breathing, no HR, no response to painful stimuli, pupils fixed and dilated. Recorded findings in chart as well as time of . certificate filled out. Notified attending and family. Resident Activity Tracking Resident Involvement: Resident Care Provided Care Provided: Adult [facility]
[2019-05-16] MEDS ORDERED: VANCOMYCIN HCL 1,000 MG in SODIUM CHLORIDE 0.9% 250 ML IV SCH (04:00)
--- NOTE | 2019-05-17 07:33 | Discharge Summary ---
Date of Service May 15, 2019 Admission HPI Per Admitting Provider 84 yo female with advanced dementia from personal intermediate, she was sent to the ED after a severe choking spell on a sandwich earlier today. There were concerns that she aspirated and she was having some dyspnea. She cannot recall any recent history, all the history is from the ED provider who got it from the EMS who brought her in. In the ED she was 85% on room air initially, placed on oxymask and saturations joseph to the mid 90's. CXR without any signs of aspiration on the right. No distress on exam. Labs showed a mild leukocytosis but were otherwise stable. Since she was requiring oxygen, request was made to observe the patient overnight. Principal Diagnosis Aspiration into airway Discharge Exam no pulse, no heart sounds, not breathing, not responsive, pupils fixed Discharge Data Allergies Allergy/AdvReac Type Severity Reaction Status Date / Time No Known Allergies Allergy Unverified 05/14/19 14:53 Consultations 05/14/19 16:14 ED Decision to Admit Stat 05/14/19 18:48 Consult Case Management - Discharge Planning Routine Ordered Studies 05/15/19 05:42 CT chest wo con Urgent Hospital Course (1) Aspiration into airway: initially admitted after a single choking incident, resolved quickly and she was down to room air the evening of 05/13 early in the morning on 05/14 she had large volume emesis and immediately choked/aspirated became hypoxic, in distress, placed on BIPAP, did not tolerate well after discussions with family we changed to a palliative approach stopped antibiotics placed on Morphine drip and Ativan IV PRN peacefully in the evening on 05/15/19 family notified (2) Hypoxia: acute hypoxic respiratory failure due to aspiration into airway comfort care (3) Dementia: ativan IV for anxiety Total Time Total Time Spent Total Time Spent (In Minutes): 38 minutes Total Time Includes: Examination of the Patient (visited patient's room 3 times to reassess), Discharge Planning and Other (several conversations with patient's son over the phone and at the bedside) Discharge Plan Discharge Items Patient Disposition: Reason For Visit: ASPIRATION,HYPOXIA Follow-up/Referrals: GUI WANG FUAD [Primary Care Provider] - Stand-Alone Forms: [facility] Admission Data Admit Date/Time: 05/15/19 10:57 Other DC Date/Time DO NOT enter until pt leaves facility: 05/15/19 21:44 Coding Level of Care Code D/C Day Management >30 mins Diagnoses Aspiration into airway T17.908A Encounter type: initial encounter Hypoxia R09.02 Dementia F03.90 Dementia behavioral disturbance: without behavioral disturbance Dementia type: unspecified type
[2019-05-18] MEDS ORDERED: VANCOMYCIN TROUGH ONE (03:30)
== END 2019-05-15 21:44 | disposition expired | DRG 205 ==
LOC: 2N 14:18 → ED 14:18 → 2N 17:25